=== PATIENT | male | born 1945 | race Caucasian/White ===

== ENCOUNTER → 2024-05-14 | Outpatient (CLI) | payer OTHER ==
[~2024-05-14] MED LIST: GADOTERATE MEGLUMINE 10 MMOL/20 ML VIAL IV ONE
--- NOTE | 2024-05-14 13:25 | HMCIMG ---
Exam Type: MR SHOULDER LEFT [facility] Clinical Information: M75.121 Complete rotator cuff tear or rupture of right shoulder, not specif Comparison: None Technique: The examination is done with sagittal T1 and inversion recovery sequences, axial GRE sequence and coronal inversion recovery, proton density and T2 weighted [id number] sequences. FINDINGS: There is a full thickness tear of the rotator cuff tendon supraspinatus component without retraction. The rest of the rotator cuff tendon structures are preserved. The acromioclavicular joint is intact. The coracoclavicular and coracohumeral ligaments are intact. The biceps anchor is well seen, without significant tears. The biceps tendon runs in the bicipital groove without significant high signal intensity to suggest sprain. No displacement is seen from the groove itself. There is an associated anterior labral tear. There is a large joint effusion, multiloculated, and there is significant synovial enhancement after gadolinium administration in this effusion could indeed represent septic arthritis. No other abnormalities are seen. IMPRESSION: Full-thickness rotator cuff tendon tear. Large joint effusion, cannot exclude septic arthritis. Anterior labral tear. Degenerative changes of the acromioclavicular joint.
== END | disposition home or self-care (01) ==
LOC: RAH 10:49
PROVIDERS: ATTEND Student in an Organized Health Care Education/Training Program
DX: S43.492A Other sprain of left shoulder joint, initial encounter (principal); M75.122 Complete rotator cuff tear or rupture of left shoulder, not specified as traumatic; M19.012 Primary osteoarthritis, left shoulder; M75.121 Complete rotator cuff tear or rupture of right shoulder, not specified as traumatic; M25.412 Effusion, left shoulder; X58.XXXA Exposure to other specified factors, initial encounter; Y93.89 Activity, other specified; Y92.89 Other specified places as the place of occurrence of the external cause; Y99.8 Other external cause status
CPT/HCPCS: 73223; A9575

== ENCOUNTER → 2024-05-20 | Outpatient (CLI) | payer OTHER ==
[~2024-05-20] MED LIST changes: -GADOTERATE MEGLUMINE 10 MMOL/20 ML VIAL IV ONE; +IOHEXOL 350 MG/ML 100ML INFUS..BTL IV ONE
--- NOTE | 2024-05-20 12:21 | HMCIMG ---
CT ABDOMEN/PELVIS W/WO CONTRAS HISTORY: Abdominal pain COMPARISON: None TECHNIQUE: Multiple sequential axial images of the abdomen and pelvis were obtained from the dome of the diaphragm through symphysis pubis. Patient was not given contrast through intravenous route. Oral contrast was given. FINDINGS: No pleural effusion is seen bilaterally. There is no evidence of parenchymal disease or pulmonary nodule of the visualized lower lungs. Degenerative changes of the thoracolumbar spine are present. The heart is not enlarged. Gallbladder is distended. The liver, spleen, adrenal glands and pancreas are unremarkable. There is no evidence of hydronephrosis bilaterally. No evidence of renal stone is seen. Fecal material is seen in the colon. There are normal size retroperitoneal and mesenteric lymph nodes. No ascites is seen. Atherosclerotic changes are present. No CT evidence of acute appendicitis is seen. There is diverticulosis. Pelvic sidewalls are symmetric bilaterally. Bladder is well distended without wall thickening. IMPRESSION: 1. Diverticulosis. No bowel obstruction. Atherosclerosis. CT was performed with one or more following dose reduction techniques: automated exposure control, adjustment of the mA and kv according to patient's size, or use of a iterative reconstruction technique.
== END | disposition home or self-care (01) ==
LOC: RAH 10:59
PROVIDERS: ATTEND Student in an Organized Health Care Education/Training Program
DX: K57.90 Diverticulosis of intestine, part unspecified, without perforation or abscess without bleeding (principal); R10.84 Generalized abdominal pain; M75.121 Complete rotator cuff tear or rupture of right shoulder, not specified as traumatic; I70.90 Unspecified atherosclerosis; M47.815 Spondylosis without myelopathy or radiculopathy, thoracolumbar region
CPT/HCPCS: 74178; Q9967